=== PATIENT | male | born 1955 | race African-American/Black ===

== ENCOUNTER 2018-05-08 12:31 | Emergency (ER) | payer MEDICARE, MEDICAID ==
[~2018-05-08] VITALS: Ht 165.1 cm; Wt 95.0 kg
[2018-05-08 12:47] VITALS: BP 170/79
== END 2018-05-08 19:39 | disposition left against medical advice (07) ==
LOC: ED 12:31 → LWOBS 13:59
DX: Z91.19 Patient's noncompliance with other medical treatment and regimen (principal)

== ENCOUNTER → 2018-05-08 | Outpatient (REF) | payer MEDICARE, MEDICAID ==
[~2018-05-08] MED LIST: AMLODIPINE5 MG PO; BENADRYL 50MG C50 MG PO; CAPOTEN25 MG PO; CARDIZEM CD240 MG PO; COUMADIN7.5 MG PO; CRESTOR10 MG PO; DIGOXIN0.125 MG PO; FLEXERIL5 M1 PO; HYDROCO/APAP1 T10 PO; ISOSORBIDE MONO30 MG PO; LANTUS SC; LISINOPRIL20 MG PO; LOPID600 MG PO; MEDDOSEPAK PO; METOPROL TAR100 MG PO; NIFEDIPINE60 M2 OR; OMEPRAZOLE20 M1 PO; PEPCID20 MG PO; ST JOSEPH AS81 MG OR; VITAMIN B-12500 MC1 PO
[2018-05-08 10:16] LABS: ANION GAP 15 (6-22 (CALC)); BUN 22 mg/dL (8-23); BUN/CREATININE RATIO 22 (12-20 (CALC)); CARBON DIOXIDE 30 mmol/l (22-30); CHLORIDE 103 mmol/l (95-108); GFR > 60 ML/MIN (>=60 (CALC)); GFR FOR AFR.AMER. > 60 ML/MIN (>=60 (CALC)); SODIUM 144 mmol/l (137-146)
[2018-05-08 11:18] LABS: INTERNATIONAL NORMALIZED RATIO 1.1 RATIO (0.7-1.3)
[2018-05-08 11:22] LABS: PROTHROMBIN TIME 11.5 SECONDS (9.0-12.5)
== END | disposition home or self-care (01) ==
LOC: LAB 08:38
PROVIDERS: ATTEND Internal Medicine
DX: E11.29 Type 2 diabetes mellitus with other diabetic kidney complication (principal)

== ENCOUNTER → 2018-05-11 | Outpatient (REF) | payer MEDICARE, MEDICAID | END | disposition home or self-care (01) | LOC: ULTRASND 14:45 | PROVIDERS: ATTEND Nurse Practitioner | DX: R60.0 Localized edema (principal); R06.02 Shortness of breath; R05 Cough ==

== ENCOUNTER 2019-05-25 | Day surgery (SDC) | payer MEDICARE, MEDICAID ==
[~2019-05-25] MED LIST changes: +APRESOLINE25 MG/TAB PO; +CENTRAVITES PO; +COUMADIN5 MG PO; +HYDROCHLOROT25 MG PO; +LANTUS100 UNIT/M SC; +WARFARIN2.5 MG PO
--- NOTE | 2019-06-09 12:56 | NUR ---
PER DR WILSON THE PATHOLOGY WAS BENIGN. I ADVISED THE PATIENT THE SAME. I ADVISED HIM TO REPEAT COLONOSCOPY IN FIVE YEARS. SENT COPY OF NOTE TO DR ELI.
== END 2019-05-25 10:00 | disposition home or self-care (01) ==
PROC: 0DBK8ZX Excision of Ascending Colon, Via Natural or Artificial Opening Endoscopic, Diagnostic (ICD-10-PCS; principal; 2019-05-25)
PROC: 0DBL8ZX Excision of Transverse Colon, Via Natural or Artificial Opening Endoscopic, Diagnostic (ICD-10-PCS; 2019-05-25)
PROC: 0DBN8ZX Excision of Sigmoid Colon, Via Natural or Artificial Opening Endoscopic, Diagnostic (ICD-10-PCS; 2019-05-25)
DX: K57.31 Diverticulosis of large intestine without perforation or abscess with bleeding (principal); D12.2 Benign neoplasm of ascending colon; D12.3 Benign neoplasm of transverse colon; K64.4 Residual hemorrhoidal skin tags; K63.89 Other specified diseases of intestine; I10 Essential (primary) hypertension; Z79.01 Long term (current) use of anticoagulants; Z86.010 Personal history of colon polyps

== ENCOUNTER 2020-01-18 15:06 | Emergency (ER) | payer MEDICARE, MEDICAID ==
[~2020-01-18] VITALS: Ht 165.1 cm; Wt 100.0 kg
[2020-01-18 17:44] VITALS: BP 178/92
== END 2020-01-18 17:49 | disposition home or self-care (01) ==
LOC: ED 15:06
DX: Z20.828 Contact with and (suspected) exposure to other viral communicable diseases (principal); I10 Essential (primary) hypertension; Z86.73 Personal history of transient ischemic attack (TIA), and cerebral infarction without residual deficits

== ENCOUNTER → 2020-11-17 | Outpatient (REF) | payer MEDICARE, MEDICAID ==
[2020-11-17 09:33] LABS: ALBUMIN 4.2 g/dL (3.2-5.0); ALKALINE PHOSPHATASE 194 u/l (38-126); ANION GAP 12 (6-22 (CALC)); BILIRUBIN, TOTAL 0.6 mg/dL (0.0-1.4); BUN 31 mg/dL (8-23); BUN/CREATININE RATIO 28 (12-20 (CALC)); CARBON DIOXIDE 35 mmol/l (22-30); CHLORIDE 99 mmol/l (95-108); CREATININE 1.1 mg/dL (0.7-1.3); GFR > 60 ML/MIN (>=60 (CALC)); GFR FOR AFR.AMER. > 60 ML/MIN (>=60 (CALC)); POTASSIUM 3.4 mmol/l (3.5-5.1); SODIUM 142 mmol/l (137-146); TOTAL PROTEIN 7.7 g/dL (6.3-8.2)
[2020-11-17 09:48] LABS: SGOT/AST 106 u/l (19-48)
== END | disposition home or self-care (01) ==
LOC: LAB 08:36
PROVIDERS: ATTEND Nurse Practitioner
DX: R79.89 Other specified abnormal findings of blood chemistry (principal)

== ENCOUNTER 2021-04-09 13:33 | Inpatient (IN) | payer MEDICARE, MEDICAID ==
[~2021-04-09] VITALS: Ht 165.1 cm; Wt 110.4 kg
[~2021-04-09 13:33] MED LIST changes: +WARFARIN SODIU2.5 M1 PO; -WARFARIN2.5 MG PO; +WARFARIN5 MG PO
--- NOTE | 2021-04-09 14:00 | NUR ---
PATIENT TO ROOM BEDSIDE TRIAGE COMPLETED
--- NOTE | 2021-04-09 14:50 | NUR ---
2 UNSUCCESSFUL IV ATTEMPTS, FACILITY TECHNICIAN IN TO ATTEMPT
--- NOTE | 2021-04-09 14:57 | NUR ---
DR SANDERS AWARE THAT PT NEEDS EJ FOR IV PER SCALDER
[2021-04-09 15:13] LABS: HEMATOCRIT 48.8 % (39.0-50.0); HEMOGLOBIN 15.1 g/dl (14.0-18.0); IMMATURE GRANULOCYTES 0.1 % (0.0-5.0); MEAN CELL VOLUME 87.8 fL CALC (80.0-100.0); MEAN CORPUSCULAR HGB 27.2 pG CALC (26.0-32.0); MEAN CORPUSCULAR HGB CONC 30.9 g/dL CAL (32.0-36.0); NEUT# 5.5 thou/uL (1.82-7.42); RED BLOOD COUNT 5.56 mill/uL (4.70-6.10); RED CELL DISTRI WIDTH 18.3 % (11.5-15.5)
--- NOTE | 2021-04-09 15:24 | NUR ---
DR SANDERS PLACE IV IN LEFT EJ, 20G. PT TOLERATED WELL. BLOOD SAMPLE COLLECTED AND TO LAB, SITE SECURED WITH TAPE AND TEGADERM.
[2021-04-09 15:30] LABS: ALBUMIN 4.2 g/dL (3.2-5.0); ALKALINE PHOSPHATASE 133 u/l (38-126); ANION GAP 8 (6-22 (CALC)); BUN 23 mg/dL (8-23); BUN/CREATININE RATIO 19 (12-20 (CALC)); CARBON DIOXIDE 37 mmol/l (22-30); CHLORIDE 101 mmol/l (95-108); CREATININE 1.2 mg/dL (0.7-1.3); GFR 60 ML/MIN (>=60 (CALC)); GFR FOR AFR.AMER. > 60 ML/MIN (>=60 (CALC)); POTASSIUM 3.5 mmol/l (3.5-5.1); SODIUM 143 mmol/l (137-146)
[2021-04-09 15:34] LABS: BILIRUBIN, TOTAL 0.7 mg/dL (0.0-1.4); SGOT/AST 77 u/l (19-48); TOTAL PROTEIN 8.8 g/dL (6.3-8.2)
[2021-04-09 15:46] LABS: MAGNESIUM 1.9 mg/dL (1.6-2.3)
[2021-04-09] MEDS ORDERED: NORVASC5 M1 PO (16:01)
[2021-04-09] MEDS ORDERED: METOPROL TAR25 MG PO (16:04)
[2021-04-09] MEDS ORDERED: LASIX 40 MG TAB40 MG PO (16:05)
[2021-04-09] MEDS ORDERED: PROTONIX40 M2 PO (16:06)
[2021-04-09] MEDS ORDERED: FEROSUL325 MG PO (16:07)
[2021-04-09] MEDS ORDERED: CENTRU3 PO (16:08)
[2021-04-09 16:24] LABS: INTERNATIONAL NORMALIZED RATIO 2.2 RATIO (0.7-1.3); PROTHROMBIN TIME 22.2 SECONDS (9.0-12.5)
[2021-04-09 17:36] VITALS: BP 180/90
--- NOTE | 2021-04-09 18:30 | NUR ---
PATIENT IS SITTING IN THE SIDE OF THE BED. ASSESSMENT DONE. PATIENT IS ALERT AND ORIENT X3. TELE IN PLACE # [id number]. PATIENT LUNGS SOUND DIMINISHED AND HAS SOB. O2 AT 4L VIA NC AND PATIENT SATS 91%. +2 EDEMA IN LEGS. DINNER TRAY PROVIDED. PATIENT DENIES ANY OTHER NEEDS AT THIS TIME. SAFETY PRECAUTIONS REINFORCED AND CALL LIGHT IN REACH.
[2021-04-09 19:00] VITALS: BP 171/81
--- NOTE | 2021-04-09 20:00 | NUR ---
PHYSICAL ASSESMENT COMPLETE. PT CURRENTLY DENIES PAIN OR DISCOMFORT. SCHEDULED MEDICATIONS AND PRN MEDICATION ADMINISTERED, SEE E-MAR. PT DENIES ANY NEEDS AT THIS TIME. PLAN OF CARE REVIEWED, PT DENIES QUESTIONS, VERBALIZES UNDERSTANDING. ITEMS WITHIN REACH, BED LOCKED IN LOW POSITION W/ BEDRAILS UP X2. CALL MARISCAL WITHIN REACH, AGREES TO CALL PRN.
[2021-04-10] VITALS (8 sets, daily range): BP systolic 122–192; BP diastolic 60–103
--- NOTE | 2021-04-10 02:36 | NUR ---
PT LAYING IN BED WITH EYES CLOSED, APPEARS TO BE SLEEPING, APPEARS COMFORTABLE AND IN NO DISTRESS. RESPIRATIONS REGULAR AND UNLABORED. ITEMS REMAIN WITHIN REACH, CALL MARISCAL REMAINS WITHIN REACH. BED REMAINS LOCKED AND IN LOW POSITION WITH BEDRAILS UP X2. WILL CONTINUE TO MONITOR.
--- NOTE | 2021-04-10 05:24 | NUR ---
PT CONTINUES WITH HIGH BP 192/109. ANRP CONTACTED FOR MEDICATION. CLONODINE 0.2 MG PERSCRIBED.
[2021-04-10 06:13] LABS: HEMOGLOBIN 14.5 g/dl (14.0-18.0); MEAN CELL VOLUME 86.6 fL CALC (80.0-100.0); MEAN CORPUSCULAR HGB 27.3 pG CALC (26.0-32.0); MEAN CORPUSCULAR HGB CONC 31.5 g/dL CAL (32.0-36.0); RED BLOOD COUNT 5.31 mill/uL (4.70-6.10)
[2021-04-10 06:33] LABS: BUN 21 mg/dL (8-23); BUN/CREATININE RATIO 17 (12-20 (CALC)); CHLORIDE 101 mmol/l (95-108); CREATININE 1.2 mg/dL (0.7-1.3); GFR 60 ML/MIN (>=60 (CALC)); GFR FOR AFR.AMER. > 60 ML/MIN (>=60 (CALC)); MAGNESIUM 1.7 mg/dL (1.6-2.3); POTASSIUM 3.8 mmol/l (3.5-5.1); SODIUM 144 mmol/l (137-146)
[2021-04-10 06:39] LABS: ANION GAP 8 (6-22 (CALC)); CARBON DIOXIDE 39 mmol/l (22-30)
--- NOTE | 2021-04-10 06:55 | NUR ---
REPORT FROM MAMADOU MARCANO. ASSUMED PT CARE.
--- NOTE | 2021-04-10 10:10 | NUR ---
PHYSICIAN AT BEDSIDE.
--- NOTE | 2021-04-10 11:02 | NUR ---
PT SITTING UP IN CHAIR AT BEDSIDE. 4L/M O2 VIA NC. SOB WITH EXERTION. VISITOR AT BEDSIDE. NO APPARENT DISTRESS NOTED. CALL LIGHT WITHIN REACH. WILL CONTINUE TO MONITOR.
--- NOTE | 2021-04-10 14:48 | NUR ---
PATIENT SITTING IN CHAIR AT THIS TIME AND LEFT IJ FLUSHED AND 1.25MG/ML GIVEN A THIS TIME OVER FIVE MINUTES FOR BLOOD PRESSURE OF 183/77. PATIENT WILL CONTINUE TO BE MONITORED. TELE MONITOR IN PLACE AND BEING MONITORED BY ED.
--- NOTE | 2021-04-10 16:30 | NUR ---
PT C/O BACK PAIN. PT STATES PAIN IS CHRONIC AND TAKES LORTABS AT HOME. NOTIFIED GILL DESOUZA.
--- NOTE | 2021-04-10 19:00 | NUR ---
RECIEVED REPORT FROM RAMONA TRAVIS
--- NOTE | 2021-04-10 20:06 | NUR ---
PT RESTING IN SEMI FOWLERS POSITION. PT IS A/OX3. ASSESSMENT COMPLETED. RESPIRATIONS ARE EVEN AND UNLABORED ON 4L NC. LUNG SOUNDS ARE CLEAR. HEART RHYTHM IRREGULAR, AFIB PER ER MONITORING. #20G LEJ FLUSHED, SITE APPEARS HEALTHY AND PATENT. SKIN INTACT. PULSES STRING. 2+ EDEMA NOTED TO BLE. PT COMPLAINS OF 8/10 LOWER BACK PAIN, PT TO BE MEDCIATED PER EMAR. PT DENIES OF ANY ADDITIONAL NEEDS AT THIS TIME. ALL SAFTEY PRECAUTIONS ARE IN PLACE WITH CALL LIGHT IN REACH. WILL CONTINUE TO MONITOR
[2021-04-11] VITALS: BP 168/77
--- NOTE | 2021-04-11 | NUR ---
PT RESTING IN SLEEPING IN SEMI FOWLERS POSITION. RESPIRATIONS ARE EVEN AND UNLABORED ON 4L NC. TELE MONITORING IN PLACE. NO SIGNS OF ANY PAINS OR DISCOMFORTS AT THIS TIME. ALL SAFTEY PRECAUTIONS ARE IN PLACE WITH CALL LIGHT IN REACH. WILL CONTINUE TO MONITOR
--- NOTE | 2021-04-11 02:19 | NUR ---
PT ASKING FOR ORANGE JUICE DUE TO "SUGAR BEING LOW". ORANGE JUICE PROVIDED. GLUCOSE MONITORING COMPLETED, RESULTING IN 104. PT DENIES OF ANY SYMPTOMS. REMAINS RESTING IN SEMI FOWLERS POSITION WATCHING TV. ALL SAFTEY PRECAUTIONS ARE IN PLACE WITH CALL LIGHT IN REACH. WILL CONTINUE TO MONITOR
--- NOTE | 2021-04-11 03:59 | NUR ---
PT SITTING UP ON SIDE OF BED. RESPIRATIONS ARE EVEN AND UNLABORED ON 4L NC. TELE MONITORING IN PLACE. #20G LEJ REMAINS IN PLACE. TELE MONITORING IN PLACE. PT DENIES OF ANY PAINS OR DISCOMFORTS AT THIS TIME. ALL SAFTEY PRECAUTIONS ARE IN PLACE WITH CALL LIGHT IN REACH. WILL CONTINUE TO MONITOR
[2021-04-11 04:00] VITALS: BP 144/78
--- NOTE | 2021-04-11 07:10 | NUR ---
REPORT FROM XOCHITL GREENE. ASSUMED PT CARE.
[2021-04-11 07:35] VITALS: BP 167/91
--- NOTE | 2021-04-11 07:45 | NUR ---
PT SITTING ON SIDE OF BED WITHOUT HIS O2. O2 STAT WAS 74% ON RA. EDUCATION REINFORCED. PT'S O2 STAT WENT UP TO 97% QUICKLY WHEN O2 REAPPLIED. PT WAS NOT IN DISTRESS. PT DID NOT WANT ANYTHING AT THIS TIME. CALL LIGHT WITHIN REACH. WILL CONTINUE TO MONITOR.
[2021-04-11 08:07] LABS: INTERNATIONAL NORMALIZED RATIO 2.2 RATIO (0.7-1.3); PROTHROMBIN TIME 21.7 SECONDS (9.0-12.5)
[2021-04-11 09:52] LABS: HEMATOCRIT 44.6 % (39.0-50.0); IMMATURE GRANULOCYTES 0.2 % (0.0-5.0); MEAN CELL VOLUME 88.5 fL CALC (80.0-100.0); MEAN CORPUSCULAR HGB 27.8 pG CALC (26.0-32.0); MEAN CORPUSCULAR HGB CONC 31.4 g/dL CAL (32.0-36.0); NEUT# 6.16 thou/uL (1.82-7.42); RED BLOOD COUNT 5.04 mill/uL (4.70-6.10); RED CELL DISTRI WIDTH 16.7 % (11.5-15.5)
--- NOTE | 2021-04-11 10:01 | NUR ---
PHYSICIAN AT BEDSIDE.
[2021-04-11 10:24] VITALS: BP 157/100
[2021-04-11 10:24] LABS: BUN 22 mg/dL (8-23); BUN/CREATININE RATIO 18 (12-20 (CALC)); CHLORIDE 92 mmol/l (95-108); CREATININE 1.2 mg/dL (0.7-1.3); GFR 60 ML/MIN (>=60 (CALC)); GFR FOR AFR.AMER. > 60 ML/MIN (>=60 (CALC)); POTASSIUM 4.1 mmol/l (3.5-5.1); SODIUM 142 mmol/l (137-146)
[2021-04-11 10:34] LABS: ANION GAP 8 (6-22 (CALC))
[2021-04-11 10:46] LABS: CARBON DIOXIDE 46 mmol/l (22-30)
--- NOTE | 2021-04-11 12:38 | NUR ---
PT RESTING IN BED. NO APPPARENT DISTRESS NOTED. RESPIRATIONS EVEN AND UNLABORED. CALL LIGHT WITHIN REACH. WILL CONTINUE TO MONITOR.
--- NOTE | 2021-04-11 15:16 | NUR ---
PT SITTING UP AT BEDSIDE. NO APPARENT DISTRESS NOTED. RESPIRATIONS EVEN AND UNLABORED. 02 @ 4L/M VIA NC. CURRENT SAT 98%. TITRATED O2 DOWN TO 3L/M WILL CONTINUE TO MONITOR.
[2021-04-11 15:33] VITALS: BP 175/85
--- NOTE | 2021-04-11 16:52 | NUR ---
BP 183/84 VASOTEC SLOW IVP ADMINISTERED. BP TO BE REASSESSED. CALL LIGHT WITHIN REACH.
--- NOTE | 2021-04-11 19:00 | NUR ---
RECIEVED RPEORT FROM RAMONA TRAVIS
[2021-04-11 19:28] VITALS: BP 122/91
--- NOTE | 2021-04-11 20:01 | NUR ---
PT RESTING IN SEMI FOWLERS POSITION. PT IS A/OX3. ASSESSMENT COMPLETED. RESPIRATIONS ARE EVEN AND UNLABORED, 92-94% ON 3L NC. ANTERIOR WHEEZING NOTED UPON ASCULTATION. HEART RHYTHM IRREGAULAR WITH TELE IN PLACE. BOWEL SOUNDS AR ACTIVE, LBM 04/11/21. #20G REJ FLUSHED, SITE APPEARS HEALTHY ADN PATENT. SKIN INTACT. 2+ EDEMA NOTED TO BLE, ENCOURAGED ELEVATION. PT C/O OF 8/10 MID BACK PAIN, PT MEDICATED PER EMAR. WARM BLANKET PROVIDED. PT DENIES OF ANY ADDITIONAL NEEDS AT THIS TIME. ALL SAFTEY PRECAUTIONS ARE IN PLACE WITH CALL LIGHT IN REACH. WILL CONTINUE TO MONITOR.
--- NOTE | 2021-04-12 00:16 | NUR ---
PT SLEEPING IN LOW FOWLERS POSITION. RESPIRATIONS ARE EVEN AND UNLABORED ON 3L NC. TELE MONITORING IN PLACE. #20G LEJ REMAINS IN PLACE. NO SIGNS OF ANY PAINS OR DISCOMFORT. ALL SAFTEY PRECAUTIONS ARE IN PLACE WITH CALL LIGHT IN REACH. WILL CONTINUE TO MONITOR
[2021-04-12 00:31] VITALS: BP 165/72
--- NOTE | 2021-04-12 04:44 | NUR ---
PT SLEEPING IN SEMI FOWLERS POSITION. RESPIRATIONS ARE EVEN AND UNLABORED ON 3L NC. TELE MONITORING IN PLACE. LEJ INTACT. NO SIGNS OR SYMPTOMS OF ANY PAINS OR DISCOMFORTS. ALL SAFETY PRECAUTIONS ARE IN PLACE WITH CALL LIGHT IN REACH. WILL CONTINUE TO MONITOR
[2021-04-12 04:57] VITALS: BP 171/87
--- NOTE | 2021-04-12 04:58 | NUR ---
CATAPRESS PRN ADMINISTERED PER ORDER DUE TO BP GREATER THEN 170. PT TOLERATED WELL
[2021-04-12 05:42] VITALS: BP 163/79
--- NOTE | 2021-04-12 05:59 | NUR ---
REASSESSMENT OF BP RESULTING IN 163/79, HR 63.
[2021-04-12 06:02] LABS: HEMATOCRIT 46.6 % (39.0-50.0); HEMOGLOBIN 14.7 g/dl (14.0-18.0); MEAN CELL VOLUME 87.6 fL CALC (80.0-100.0); MEAN CORPUSCULAR HGB 27.6 pG CALC (26.0-32.0); MEAN CORPUSCULAR HGB CONC 31.5 g/dL CAL (32.0-36.0); RED BLOOD COUNT 5.32 mill/uL (4.70-6.10); RED CELL DISTRI WIDTH 16.5 % (11.5-15.5)
[2021-04-12 06:17] LABS: BUN 28 mg/dL (8-23); BUN/CREATININE RATIO 24 (12-20 (CALC)); CHLORIDE 88 mmol/l (95-108); CREATININE 1.2 mg/dL (0.7-1.3); GFR 60 ML/MIN (>=60 (CALC)); GFR FOR AFR.AMER. > 60 ML/MIN (>=60 (CALC)); MAGNESIUM 1.7 mg/dL (1.6-2.3); POTASSIUM 3.7 mmol/l (3.5-5.1); SODIUM 142 mmol/l (137-146)
[2021-04-12 06:25] LABS: ANION GAP 10 (6-22 (CALC))
[2021-04-12 06:50] LABS: CARBON DIOXIDE 48 mmol/l (22-30)
--- NOTE | 2021-04-12 06:52 | NUR ---
PHYSICIAN INFORMED BY EF OF CO2 RESULTING IN 48. DR YEE AT BEDSIDE
--- NOTE | 2021-04-12 08:00 | NUR ---
SHIFT CHANGE REPORT, PT AWAKE ALERT AND ORIENTED RESTING IN BED, DENIES DISCOMFORT AT THIS TIME, O2 @ 2L VIA NC IN PLACE, TELE MONITOR IN PLACE, CALL MARISCAL IN REACH AND BED LOCKED IN LOWEST POSITION.
[2021-04-12 08:48] VITALS: BP 142/90
[2021-04-12 11:00] VITALS: BP 148/99
--- NOTE | 2021-04-12 14:24 | NUR ---
TRANSPORTED OFF UNIT AT THIS TIME VIA W/C TO X-RAY DEPT FOR PROCEDURE.
[2021-04-12] MEDS ORDERED: AMOX/K CLAV875 M1 PO (15:34)
[2021-04-12] MEDS ORDERED: ZITHROMAX250 MG PO (15:36)
--- NOTE | 2021-04-12 18:03 | NUR ---
Discharge instructions given. Patient verbalizes understanding of same. Discharged in stable condition via Wheelchair to Home with friend. All belongings sent with pt.
== END 2021-04-12 17:49 | disposition home health service (06) | DRG 291 ==
LOC: ED 13:33 → ED-I 16:20 → ED 16:33 → MS2 16:34
PROVIDERS: Emergency Medicine; Nurse Practitioner; ADMIT Internal Medicine; ATTEND Internal Medicine
DX: I11.0 Hypertensive heart disease with heart failure (principal); J18.9 Pneumonia, unspecified organism; I50.9 Heart failure, unspecified; R09.02 Hypoxemia; E11.9 Type 2 diabetes mellitus without complications; I48.91 Unspecified atrial fibrillation; I25.10 Atherosclerotic heart disease of native coronary artery without angina pectoris; E78.5 Hyperlipidemia, unspecified; Z86.73 Personal history of transient ischemic attack (TIA), and cerebral infarction without residual deficits; Z79.4 Long term (current) use of insulin; Z20.822 Contact with and (suspected) exposure to COVID-19
CPT/HCPCS: G0378; S0164

== ENCOUNTER 2021-06-15 18:48 | Emergency (ER) | payer MEDICARE, MEDICAID ==
[~2021-06-15 18:48] MED LIST changes: +AMOX/K CLAV875 M1 PO; +CENTRU3 PO; +FEROSUL325 MG PO; +LASIX 40 MG TAB40 MG PO; +METOPROL TAR25 MG PO; +NORVASC5 M1 PO; +PROTONIX40 M2 PO; +ZITHROMAX250 MG PO
== END 2021-06-15 19:45 | disposition left against medical advice (07) ==
LOC: ED 18:48 → LWOBS 19:45 → ED 19:45
DX: Z53.21 Procedure and treatment not carried out due to patient leaving prior to being seen by health care provider (principal)

== ENCOUNTER 2023-05-14 13:37 | Observation (INO) | payer MEDICARE, MEDICAID ==
[~2023-05-14] VITALS: Ht 165.1 cm; Wt 94.6 kg
[2023-05-14] VITALS (19 sets, daily range): BP systolic 115–200; BP diastolic 65–114
[~2023-05-14 13:37] MED LIST changes: +MELOXICAM7.5 MG PO
[2023-05-14 14:17] LABS: BASO% 0.8 % (0-3); EOS% 3.1 % (0-8); HEMATOCRIT 41.1 % (39.0-50.0); HEMOGLOBIN 12.7 g/dl (14.0-18.0); IMMATURE GRANULOCYTES 0.3 % (0.0-5.0); LYMPH% 18.3 % (15-41); MEAN CELL VOLUME 85.6 fL CALC (80.0-100.0); MEAN CORPUSCULAR HGB 26.5 pG CALC (26.0-32.0); MEAN CORPUSCULAR HGB CONC 30.9 g/dL CAL (32.0-36.0); MONO% 10.3 % (2-13); NEUT# 4.37 thou/uL (1.82-7.42); NEUT% 67.2 % (42-76); RED BLOOD COUNT 4.8 mill/uL (4.70-6.10); RED CELL DISTRI WIDTH 16.9 % (11.5-15.5)
[2023-05-14 14:20] LABS: URINE BILIRUBIN - DIPSTICK Negative (NEGATIVE); URINE BLOOD DIPSTICK Small (NEGATIVE); URINE GLUCOSE - DIPSTICK Negative (NEGATIVE); URINE KETONE Negative (NEGATIVE); URINE LEUK ESTERASE Trace (NEGATIVE); URINE NITRITE - DIPSTICK Negative (Negative); URINE PROTEIN - DIPSTICK 100 mg/dL (NEG-TRACE); URINE SPECIFIC GRAVITY 1.025; URINE UROBILINOGEN - DIPSTICK 0.2 E.U./dL (0.2)
[2023-05-14 14:25] LABS: URINE COLOR Yellow
[2023-05-14 14:26] LABS: URINE MUCUS FEW hpf (NONE-FEW); URINE RBC 0-2 RBC/hpf (0-5); URINE WBC 0-2 WBC/hpf (0-5)
[2023-05-14 14:43] LABS: INTERNATIONAL NORMALIZED RATIO 1.1 RATIO (0.7-1.3); PROTHROMBIN TIME 10.4 SECONDS (9.0-12.5)
[2023-05-14 14:45] LABS: ALBUMIN 4.1 g/dL (3.2-5.0); ALKALINE PHOSPHATASE 113 u/l (38-126); ANION GAP 9 (6-22 (CALC)); BILIRUBIN, TOTAL 0.6 mg/dL (0.2-1.3); BUN 20 mg/dL (8-23); BUN/CREATININE RATIO 18 (12-20 (CALC)); CARBON DIOXIDE 36 mmol/l (22-30); CHLORIDE 101 mmol/l (95-108); CREATININE 1.1 mg/dL (0.7-1.3); GFR FOR AFR.AMER. > 60 ML/MIN (>=60 (CALC)); GFR OTHER RACES > 60 ML/MIN (>=60 (CALC)); SGOT/AST 33 u/l (19-48); SODIUM 142 mmol/l (137-146); TOTAL PROTEIN 8.2 g/dL (6.3-8.2)
[2023-05-14 14:51] LABS: DIGOXIN 0.6 ng/mL (0.8-2.0)
[2023-05-14] MEDS ORDERED: hydrALAZINE HCL 20 MG/ML VIAL(1 ML) IV ONE (15:05)
[2023-05-14] MEDS ORDERED: BUMETANIDE 1 MG/4 ML VIAL IV ONE (15:05)
[2023-05-14] MEDS ORDERED: SODIUM CHLORIDE 0.9% 1,000 ML IV PRN (15:45)
[2023-05-14] MEDS ORDERED: ACETAMINOPHEN 325 MG/TAB PO PRN (15:45)
[2023-05-14] MEDS ORDERED: MAGNESIUM HYDROXIDE 30 ML UDC PO PRN (15:45)
[2023-05-14] MEDS ORDERED: hydrALAZINE HCL 20 MG/ML VIAL(1 ML) IV PRN (15:50)
[2023-05-14] MEDS ORDERED: LABETALOL HCL 20 MG/ 4 ML CARTRG IV PRN (15:50)
[2023-05-14] MEDS ORDERED: ENOXAPARIN SODIUM 40 MG/0.4 ML SYR SC SCH (21:00)
[2023-05-15] VITALS (8 sets, daily range): BP systolic 136–174; BP diastolic 49–93
[2023-05-15 06:15] LABS: BASO% 1.1 % (0-3); EOS% 1.9 % (0-8); HEMOGLOBIN 11.8 g/dl (14.0-18.0); LYMPH% 13.3 % (15-41); MEAN CELL VOLUME 84.7 fL CALC (80.0-100.0); MEAN CORPUSCULAR HGB CONC 31.9 g/dL CAL (32.0-36.0); MONO% 10.6 % (2-13); NEUT# 5.33 thou/uL (1.82-7.42); NEUT% 73.1 % (42-76); RED BLOOD COUNT 4.37 mill/uL (4.70-6.10); RED CELL DISTRI WIDTH 16.6 % (11.5-15.5)
[2023-05-15 06:20] LABS: BUN 17 mg/dL (8-23); BUN/CREATININE RATIO 17 (12-20 (CALC)); CHLORIDE 100 mmol/l (95-108); GFR FOR AFR.AMER. > 60 ML/MIN (>=60 (CALC)); GFR OTHER RACES > 60 ML/MIN (>=60 (CALC)); MAGNESIUM 1.7 mg/dL (1.6-2.3); POTASSIUM 3.6 mmol/l (3.5-5.1); SODIUM 142 mmol/l (137-146)
[2023-05-15 06:36] LABS: ANION GAP 7 (6-22 (CALC)); CARBON DIOXIDE 39 mmol/l (22-30)
[2023-05-15] MEDS ORDERED: DEXTROSE 250 ML IV PRN (08:30)
[2023-05-15] MEDS ORDERED: FUROSEMIDE 40 MG/4 ML SDV IV SCH (09:30)
[2023-05-15] MEDS ORDERED: LISINOPRIL 20 MG/TAB PO SCH (10:00)
[2023-05-15] MEDS ORDERED: PANTOPRAZOLE SODIUM Sesquihydr 40 MG/TAB PO SCH (10:00)
[2023-05-15] MEDS ORDERED: ASPIRIN 81 MG/TAB PO SCH (10:00)
[2023-05-15] MEDS ORDERED: INSULIN DETEMIR 100 UNITS/ML SC SCH (10:00)
[2023-05-15] MEDS ORDERED: amLODIPine BESYLATE 5 MG/TAB PO SCH (10:00)
[2023-05-15] MEDS ORDERED: METOPROLOL TARTRATE 50 MG/TAB PO SCH (10:00)
[2023-05-15] MEDS ORDERED: DIGOXIN 0.125 MG/TAB PO SCH (10:00)
[2023-05-15] MEDS ORDERED: LORTAB 7.57.5 MG PO (10:23)
[2023-05-15] MEDS ORDERED: INSULIN LISPRO 100 UNITS/ML ML SC SCH (11:00)
[2023-05-15] MEDS ORDERED: APIXABAN BASE 2.5 MG/TAB TAB PO SCH (15:00)
[2023-05-15] MEDS ORDERED: APIXABAN BASE 5 MG TAB PO SCH (15:00)
[2023-05-16 04:06] VITALS: BP 166/70
[2023-05-16 04:52] LABS: BASO% 0.6 % (0-3); EOS% 4.5 % (0-8); HEMATOCRIT 38.1 % (39.0-50.0); HEMOGLOBIN 12.1 g/dl (14.0-18.0); IMMATURE GRANULOCYTES 0.2 % (0.0-5.0); LYMPH% 18.5 % (15-41); MEAN CELL VOLUME 84.1 fL CALC (80.0-100.0); MEAN CORPUSCULAR HGB 26.7 pG CALC (26.0-32.0); MEAN CORPUSCULAR HGB CONC 31.8 g/dL CAL (32.0-36.0); MONO% 12.7 % (2-13); NEUT# 3.96 thou/uL (1.82-7.42); NEUT% 63.5 % (42-76); RED BLOOD COUNT 4.53 mill/uL (4.70-6.10); RED CELL DISTRI WIDTH 16.6 % (11.5-15.5)
[2023-05-16 05:24] LABS: BUN 20 mg/dL (8-23); BUN/CREATININE RATIO 18 (12-20 (CALC)); CHLORIDE 99 mmol/l (95-108); CREATININE 1.1 mg/dL (0.7-1.3); GFR FOR AFR.AMER. > 60 ML/MIN (>=60 (CALC)); GFR OTHER RACES > 60 ML/MIN (>=60 (CALC)); MAGNESIUM 1.8 mg/dL (1.6-2.3); POTASSIUM 3.3 mmol/l (3.5-5.1); SODIUM 142 mmol/l (137-146)
[2023-05-16 05:29] LABS: ANION GAP 6 (6-22 (CALC))
[2023-05-16 05:40] LABS: CARBON DIOXIDE 40 mmol/l (22-30)
[2023-05-16 07:09] VITALS: BP 155/73
[2023-05-16 07:22] VITALS: BP 155/72
[2023-05-16] MEDS ORDERED: POTASSIUM CHLORIDE 20 MEQ/TAB PO SCH (09:00)
[2023-05-16 10:30] VITALS: BP 158/65
== END 2023-05-16 13:36 | disposition home health service (06) ==
LOC: ED 13:37 → ED-I 14:51 → ED 16:00 → ED-I 16:01 → MS2 16:01
PROVIDERS: Family Medicine; Nurse Practitioner; ADMIT Student in an Organized Health Care Education/Training Program; ATTEND Student in an Organized Health Care Education/Training Program
DX: I11.0 Hypertensive heart disease with heart failure (principal); I50.9 Heart failure, unspecified; J96.11 Chronic respiratory failure with hypoxia; E11.9 Type 2 diabetes mellitus without complications; I25.10 Atherosclerotic heart disease of native coronary artery without angina pectoris; I48.20 Chronic atrial fibrillation, unspecified; Z86.73 Personal history of transient ischemic attack (TIA), and cerebral infarction without residual deficits; Z79.4 Long term (current) use of insulin; Z99.81 Dependence on supplemental oxygen; Z20.822 Contact with and (suspected) exposure to COVID-19
CPT/HCPCS: G0378; J1650